=== PATIENT | female | born 1980 | race Caucasian/White ===

== ENCOUNTER 2018-09-07 12:50 | Emergency (ER) | payer BC, MEDICAID ==
[~2018-09-07] VITALS: Ht 149.9 cm; Wt 81.6 kg
[2018-09-07 12:54] VITALS: BP 130/61
[2018-09-07] MEDS ORDERED: METHOCARBAMOL (500MG) 500 MG TABLET PO ONE (13:30)
[2018-09-07] MEDS ORDERED: ACETAMINOPHEN ES 500 MG TABLET PO ONE (13:30)
[2018-09-07] MEDS ORDERED: ACETAMINOPHEN ES 500 MG TABLET ONE (14:03)
[2018-09-07] MEDS ORDERED: METHOCARBAMOL (500MG) 500 MG TABLET ONE (14:03)
== END 2018-09-07 15:23 | disposition home or self-care (01) ==
LOC: ER 12:51
DX: S16.1XXA Strain of muscle, fascia and tendon at neck level, initial encounter (principal); R51 Headache; M25.512 Pain in left shoulder; M79.642 Pain in left hand; V49.69XA Unspecified car occupant injured in collision with other motor vehicles in traffic accident, initial encounter; Y93.89 Activity, other specified; Y92.413 State road as the place of occurrence of the external cause; Y99.8 Other external cause status
CPT/HCPCS: 72050-TC; 73030-TC; 73120-TC